=== PATIENT | male | born 1975 | race Caucasian/White ===

== ENCOUNTER 2023-03-20 13:24 | Outpatient (CLI) | payer OTHER, SELFPAY ==
--- NOTE | 2023-04-05 19:45 | WPDHOMESLEEP ---
Sleep Study - Home Unattended Date of Study: 03/20/23 Ordering Provider: Dmitriy Scruggs MD Interpreting Provider: Swetha Woodson, DO Home Sleep Study Type: Watch PAT Height: 1.78 m Weight: 145.15 kg Body Mass Index: 45.9 Neck Circumference (inches): 18.5 [place]: 7 Reason for Sleep Study Snoring, daytime hypersomnia Sleep History The patient is a 47-year-old male with hypertension, GERD and morbid obesity that had a sleep study ordered by his primary care for evaluation of sleep apnea. The patient frequently awakens from sleep short of breath. He frequently awakens at night with heartburn, belching or cough. He frequently snores loudly enough that others complain. He frequently has trouble sleeping when he has a cold. He occasionally wakes up gasping for air throughout the night. He frequently has breathing problems at night observed by himself or others. He denies sweating excessively at night. He occasionally has heart palpitations or irregular heartbeats during the night. He rarely falls asleep during the day and never while driving. He denies sleep paralysis, cataplexy and hypnagogic / hypnopompic hallucinations. He occasionally has trouble at school or work due to sleepiness. He rarely feels afraid of going to sleep. He occasionally has nightmares. He rarely remembers his dreams. He occasionally has thoughts racing through his mind. He rarely feels sad or depressed. He frequently has anxiety. He rarely has muscular tension. He occasionally notices parts of his body jerk. He rarely kicks during the night. He occasionally has crawling and aching feelings in his legs but rarely has leg pain during the night. He occasionally grinds his teeth during sleep and occasionally awakens with morning jaw pain. He is rarely bothered by pain during the day and rarely awakened by pain during the night. He frequently wakes up feeling stiff in the morning. He frequently wakes up with sore or achy muscles. He frequently wakes up with pain in the neck, spine or other joints. He goes to bed at 9:00 p.m. on weekdays and 10:30 p.m. on weekends. It takes him a few minutes to fall asleep. He wakes up with 3-4 times throughout the night for unknown reasons. When he awakens, he will later her check his phone. It takes 10-60 minutes to fall back asleep. He wakes up at 6:30 a.m. on weekdays and at 7:30 a.m. on the weekends. He typically gets 4-6 hours of sleep per night. He will stay in bed for 30 minutes after waking up in the morning. He currently lives with his and 2 children. He does not consume any caffeinated beverages within 2 hours of bedtime. He does not engage in physical exercise before bedtime. He will watch television before falling asleep. He will take naps in the afternoon or the evening but they are not refreshing. He consumes 2 caffeinated beverages per day. He consumes 1 alcoholic beverage per day. He denies tobacco and recreational drug use. [facility] Past Medical History Medical History BMI 40.0-44.9, adult Cholecystectomy planned Morbid obesity with BMI of 45.0-49.9, adult Family History Family History Grandparent Cerebrovascular accident Family history of heart disease in male family member before age 55 Father No problems noted. Mother Hypertension Sibling No problems noted. Social History Social History Smoking status: Never smoker Second hand tobacco smoke exposure: Yes Alcohol intake: current Substance use: never Substance use type: does not use Lack of Transportation: YES Lack of Food: Never True Current Housing: I Have Housing Concerned About Future Housing: No Difficulty Paying Gas/Electric Bills: No Difficulty Paying for Meds: No Currently Unemployed: No Education: Associate
[2023-04-06 16:20] VITALS: BMI 45.9
--- NOTE | 2023-06-21 15:00 | SLEEP ---
[id number] [facility] 07/02 new test
== END 2023-03-21 10:45 | disposition home or self-care (01) ==
LOC: ANHCSM 13:25
PROVIDERS: PCP Family Medicine; Visit Provider Family Medicine
DX: G47.30 Sleep apnea, unspecified (principal); G47.33 Obstructive sleep apnea (adult) (pediatric)
CPT/HCPCS: 95800

== ENCOUNTER 2023-07-02 09:21 | Outpatient (CLI) | payer OTHER, SELFPAY ==
--- NOTE | 2023-07-22 16:30 | WPDSLEEPSTUD ---
Sleep Study Date of Study: 07/02/23 Ordering Provider: Dmitriy Scruggs MD Interpreting Physician: Ani Ramirez MD Sleep Study Type: CPAP Titration Height: 1.75 m Weight: 145.15 kg Body Mass Index: 47.2 Neck Circumference (inches): 18.5 [place]: 3 Reason for Sleep Study * 03/20/2023 Home sleep test using WatchPat showing severe obstructive sleep apnea, AHI 60.5 with desaturation to 79%; patient presents for CPAP titration. * 06/18/2012 split night sleep study; history of severe KYLAH; AHI 78.9 with devante saturation 72%, treated with CPAP 14 cm; BMI was 47.6 Sleep History Leland High Jr is a 47-year-old male with hypertension, prediabetes, GERD and morbid obesity who had a home sleep test March 20, 2023 showing severe KYLAH, AHI was 60.9. He has a history of severe KYLAH over 10 years ago during a split night study. He frequently awakens from sleep feeling short of breath.? He frequently awakens at night with heartburn, belching or coughing.? He frequently snores loudly enough that others complain.? He frequently has trouble sleeping when he has a cold.? He occasionally wakes up gasping for air during the night.? He frequently has breathing problems at night observed by others.? He denies sweating excessively at night.? He occasionally has heart palpitations or irregular heartbeats during the night.? He rarely falls asleep during the day, never while driving.? He denies feeling unable to move on falling asleep or on waking. He does not have muscle weakness with strong emotion. He occasionally has daytime difficulties due to excessive daytime sleepiness.? He rarely feels afraid of going to sleep.? He occasionally has nightmares.? He rarely remembers his dreams.? He occasionally has thoughts racing through his mind.? He rarely feels sad or depressed.? He frequently has anxiety.? He rarely has muscular tension.? He occasionally notices parts of his body jerk.? He rarely kicks during the night.? He occasionally has crawling and aching feelings in his legs but rarely has leg pain during the night.? He occasionally grinds his teeth during sleep and occasionally awakens with morning jaw pain.? He is rarely bothered by pain during the day and rarely awakened by pain during the night.? He frequently wakes up feeling stiff in the morning.? He frequently wakes up with sore or achy muscles.? He frequently wakes up with pain in the neck, spine or other joints.? Normal bedtime is 9:00 p.m. on weekdays and 10:30 p.m. on weekends.? It takes him a few minutes to fall asleep.? He wakes up 3-4 times throughout the night for unknown reasons.? Sometimes, he checks his phone during the night. It may take between 10-60 minutes to return to sleep. He wakes at 6:30 a.m. on weekdays and at 7:30 a.m. on the weekends.? He typically gets 4-6 hours of sleep per night.?He takes naps in the afternoon or the evening, however a short nap is not refreshing. ? Habits: Never smoker. Caffeine: 2 caffeinated beverages per day.? Alcohol: 1 alcoholic beverage per day.? Recreational substance: none. [facility] Past Medical History Medical History (Updated 07/22/23 @ 16:38 by Ani Ramirez MD) BMI 40.0-44.9, adult Cholecystectomy planned Hypertension Morbid obesity with BMI of 45.0-49.9, adult KYLAH (obstructive sleep apnea) Prediabetes Family History Family History Grandparent Cerebrovascular accident Family history of heart disease in male family member before age 55 Father No problems noted. Mother Hypertension Sibling No problems noted. Social History Social History Smoking status: Never smoker Second hand tobacco smoke exposure: Yes Alcohol intake: current Substance use: never Substance use type: does not use Lack of Transportation: YES Lack of Food: Never True Current Housing: I Have Housing Concerned About Future Housing: No Diffi
[2023-07-24 19:13] VITALS: BMI 47.2
== END 2023-07-03 04:15 | disposition home or self-care (01) ==
LOC: ANHCSM 09:23
PROVIDERS: PCP Family Medicine; Visit Provider Family Medicine
DX: G47.33 Obstructive sleep apnea (adult) (pediatric) (principal)
CPT/HCPCS: 95811